=== PATIENT | male | born 1995 | race Hispanic/Latino ===

== ENCOUNTER 2020-11-10 13:31 | Emergency (ER) | payer OTHER ==
[2020-11-10] MEDS ORDERED: KETOROLAC TROMETHAMINE 30MG/ML ONE (13:49)
[2020-11-10] MEDS ORDERED: TETANUS/DIPHTHERIA TOXOID [ADULT] 0.5 ML VIAL IM ONE (13:50)
[2020-11-10] MEDS ORDERED: CYCLOBENZAPRINE HCL 10 MG TABLET ONE (13:50)
[2020-11-10] MEDS ORDERED: CLINDAMYCIN HCL 150 MG CAP ONE (15:11)
== END 2020-11-10 16:20 ==
LOC: EDH 13:31
DX: S39.012A Strain of muscle, fascia and tendon of lower back, initial encounter (principal); S80.02XA Contusion of left knee, initial encounter; S50.02XA Contusion of left elbow, initial encounter; S00.83XA Contusion of other part of head, initial encounter; K04.7 Periapical abscess without sinus; V49.59XA Passenger injured in collision with other motor vehicles in traffic accident, initial encounter; Y93.89 Activity, other specified; Y92.89 Other specified places as the place of occurrence of the external cause; Y99.8 Other external cause status
CPT/HCPCS: 70450; 70486; 72100; 72125; 73070; 73562; 90471; 90714; 96374; 99291; J1885; G0390